=== PATIENT | female | born 1970 | race American Indian/Alaskan Native ===

== ENCOUNTER → 2023-01-11 | Outpatient (CLI) | payer OTHER | LOC: COL.RAD 13:47 | DX: M22.42 Chondromalacia patellae, left knee (principal); S82.492D Other fracture of shaft of left fibula, subsequent encounter for closed fracture with routine healing; M77.8 Other enthesopathies, not elsewhere classified; X58.XXXD Exposure to other specified factors, subsequent encounter ==